=== PATIENT | male | born 1990 | race Caucasian/White ===

== ENCOUNTER 2023-11-09 11:11 | Outpatient (CLI) | payer BC, SELFPAY ==
[2023-11-09 14:04] LABS: Liquefaction Semen Complete in 30 min. (<30 minutes); Semen Color Opaque (Grey-opaque); Semen Immotility 10 %; Semen Non-Progressive Motility 20 %; Semen Progressive Motility 70 % (>32); Semen Total Motility 90 (>40% (PM+NP)); Semen Viscosity Not Increased (Not Increa.)
[2023-11-09 14:05] LABS: Semen Morphology Result to Follow; Sperm Count 107.9 Mil/mL (60-150 million/mL)
[2023-11-12 22:49] LABS: Fructose, Semen 257 mg/dL (150-600)
== END 2023-11-09 11:12 | disposition home or self-care (01) ==
LOC: CHSLAB 11:21
DX: Z31.41 Encounter for fertility testing (principal)
CPT/HCPCS: 82757; 88160; 89320